=== PATIENT | male | born 1970 | race Hispanic/Latino ===

== ENCOUNTER 2023-03-12 18:27 | Inpatient (IN) | payer MEDICAID ==
[~2023-03-12] VITALS: Ht 165.1 cm; Wt 66.0 kg
[2023-03-12] MEDS ORDERED: LEVOFLOXACIN 750 MG/D5W 150 ML 150 ML IV ONE (21:00)
[2023-03-12] MEDS ORDERED: VANCOMYCIN 1G/250ML KIT 250 ML IV ONE (21:00)
[2023-03-12] MEDS ORDERED: TETANUS/DIPHTHERIA TOXOID [ADULT] 0.5 ML VIAL IM ONE (21:00)
[2023-03-12 21:09] LABS: BASOPHILS # (AUTO) 0.06 K/uL (0.00-0.20); BASOPHILS % (AUTO) 0.6 % (0.0-5.0); EOSINOPHILS # (AUTO) 0.01 K/uL (0.00-0.70); EOSINOPHILS % (AUTO) 0.1 % (0.0-8.0); HEMATOCRIT 36.4 % (42-54); IMMATURE GRANULOCYTE ABSOLUTE 0.34 K/uL (0-1); LYMPHOCYTES # (AUTO) 1.2 K/uL (1.0-4.8); LYMPHOCYTES % (AUTO) 12.5 % (21.0-51.0); MEAN CORPUSCULAR HGB CONC 32.4 g/dL (32.0-36.0); MEAN CORPUSCULAR VOLUME 92.6 fL (79-99); MONOCYTES # (AUTO) 0.7 K/uL (0.1-1.0); MONOCYTES % (AUTO) 7.1 % (3.0-13.0); NEUTROPHILS # (AUTO) 7.5 K/uL (1.8-7.7); NEUTROPHILS % (AUTO) 76.2 % (40.0-77.0); PLATELET COUNT (AUTO) 234 K/uL (130-400); RED BLOOD CELL COUNT(AUTO) 3.93 MIL/uL (4.50-6.20); RED CELL DISTRIBUTION WIDTH 13.2 % (11.0-15.5); WHITE BLOOD COUNT (AUTO) 9.9 K/uL (4.8-10.8)
[2023-03-12 21:23] LABS: CREATININE 0.9 mg/dL (0.5-1.5); POTASSIUM 3.8 mmol/L (3.5-5.1)
[2023-03-12 21:46] LABS: ALBUMIN 2.6 g/dL (3.5-5.0); BILIRUBIN,TOTAL 0.2 mg/dL (0.2-1.0); TOTAL PROTEIN, SERUM 7.5 g/dL (6.0-8.3)
[2023-03-12] MEDS ORDERED: ONDANSETRON 4MG INJ IV PRN (22:30)
[2023-03-12] MEDS ORDERED: POTASSIUM CHLORIDE 10% ELIXIR 20 MEQ/15 ML UDCUP PO PRN (22:30)
[2023-03-12] MEDS ORDERED: MORPHINE 2 MG SYG IV PRN (22:30)
[2023-03-12] MEDS ORDERED: VANCOMYCIN PROTOCOL PER PHARMACY IV PRN (22:30)
[2023-03-12] MEDS ORDERED: KCL 20 MEQ ERTAB PO PRN (22:30)
[2023-03-12] MEDS ORDERED: POTASSIUM CHLORIDE 20MEQ/100ML 100 ML IV PRN (22:30)
[2023-03-12] MEDS ORDERED: ACETAMINOPHEN 325 MG TAB PO PRN ×2 (22:30)
[2023-03-12] MEDS ORDERED: MAGNESIUM 2GM PREMIX 50ML 50 ML IV PRN (22:30)
[2023-03-12] MEDS: LACTATED RINGERS 1000ML 1,000 ML IV SCH (23:13)
[2023-03-13] VITALS (9 sets, daily range): BP systolic 102–143; BP diastolic 53–82; PULSE 70–98; RESP 17–22; O2SAT 92–100
[2023-03-13] MEDS ORDERED: VANCOMYCIN 750MG VIAL IVPB ONE (00:30)
[2023-03-13] MEDS ORDERED: CLON1TAB12 PO (01:22)
[2023-03-13] MEDS ORDERED: LEVO125 PO (01:22)
[2023-03-13] MEDS ORDERED: QUET100T34 PO (01:22)
[2023-03-13] MEDS ORDERED: AUGMENTIN PO (01:22)
[2023-03-13] MEDS ORDERED: LEVE750T10 PO (01:22)
[2023-03-13] MEDS ORDERED: DOCU60SY6 PO (01:22)
[2023-03-13] MEDS ORDERED: HYDROCORTISONE TAB PO (01:22)
[2023-03-13] MEDS ORDERED: ZONI100C87 PO (01:22)
[2023-03-13] MEDS ORDERED: VITAMIN D3 PO (01:22)
[2023-03-13] MEDS ORDERED: CALC-135 PO (01:22)
[2023-03-13] MEDS ORDERED: ASPI-1197 PO (01:22)
[2023-03-13] MEDS ORDERED: POLY119P3 PO (01:22)
[2023-03-13] MEDS ORDERED: CLON0.5T4 PO (01:22)
[2023-03-13] MEDS ORDERED: CYAN500T46 PO (01:22)
[2023-03-13] MEDS ORDERED: FOLI0.8T3 PO (01:22)
[2023-03-13] MEDS ORDERED: QUET200T30 PO (01:22)
[2023-03-13] MEDS ORDERED: MULT-1367 PO (01:22)
[2023-03-13] MEDS ORDERED: HALOPERIDOL INJ 5 MG/ML VIAL ONE ×2 (03:41→12:54)
[2023-03-13] MEDS: LACTATED RINGERS 1000ML 1,000 ML IV SCH ×2 (04:00→20:43)
[2023-03-13 04:59] LABS: BASOPHILS # (AUTO) 0.05 K/uL (0.00-0.20); BASOPHILS % (AUTO) 0.6 % (0.0-5.0); EOSINOPHILS # (AUTO) 0.01 K/uL (0.00-0.70); EOSINOPHILS % (AUTO) 0.1 % (0.0-8.0); HEMATOCRIT 35.5 % (42-54); IMMATURE GRANULOCYTE ABSOLUTE 0.35 K/uL (0-1); LYMPHOCYTES # (AUTO) 1.3 K/uL (1.0-4.8); LYMPHOCYTES % (AUTO) 15.1 % (21.0-51.0); MEAN CORPUSCULAR HEMOGLOBIN 29.9 pg (27.0-33.0); MEAN CORPUSCULAR HGB CONC 31.5 g/dL (32.0-36.0); MEAN CORPUSCULAR VOLUME 94.7 fL (79-99); MONOCYTES # (AUTO) 0.6 K/uL (0.1-1.0); NEUTROPHILS # (AUTO) 6.5 K/uL (1.8-7.7); NEUTROPHILS % (AUTO) 73.2 % (40.0-77.0); PLATELET COUNT (AUTO) 219 K/uL (130-400); RED BLOOD CELL COUNT(AUTO) 3.75 MIL/uL (4.50-6.20); RED CELL DISTRIBUTION WIDTH 13.2 % (11.0-15.5); WHITE BLOOD COUNT (AUTO) 8.9 K/uL (4.8-10.8)
[2023-03-13 05:35] LABS: CREATININE 0.8 mg/dL (0.5-1.5); MAGNESIUM 2.1 mg/dL (1.80-2.40); PHOSPHORUS 3.4 mg/dL (2.5-4.9); POTASSIUM 3.4 mmol/L (3.5-5.1); THYROID STIMULATING HORMONE 5.6 uIU/mL (0.36-3.74)
[2023-03-13] MEDS: FAMOTIDINE 20MG TAB PO SCH ×2 (10:23→20:43)
[2023-03-13] MEDS: ENOXAPARIN SODIUM 40 MG/0.4 ML SYRINGE SQ SCH (10:23)
[2023-03-13] MEDS: LEVOFLOXACIN 750 MG/D5W 150 ML 150 ML IV SCH (10:23)
[2023-03-13] MEDS: VANCOMYCIN 1G/250ML KIT 250 ML IV SCH ×2 (12:04→23:00)
[2023-03-13] MEDS ORDERED: HALOPERIDOL INJ 5 MG/ML VIAL IV SCH (13:00)
[2023-03-13] MEDS: HALOPERIDOL INJ 5 MG/ML VIAL IM SCH (13:00)
[2023-03-13] MEDS: MORPHINE 4 MG SYG IV PRN (17:16)
[2023-03-14] VITALS (7 sets, daily range): BP systolic 94–140; BP diastolic 42–86; PULSE 66–76; RESP 18–20; O2SAT 97
[2023-03-14] MEDS: HALOPERIDOL INJ 5 MG/ML VIAL IM PRN ×2 (04:58→20:00)
[2023-03-14 08:38] LABS: HEMATOCRIT 37.4 % (42-54); MEAN CORPUSCULAR HEMOGLOBIN 30.3 pg (27.0-33.0); MEAN CORPUSCULAR HGB CONC 32.6 g/dL (32.0-36.0); MEAN CORPUSCULAR VOLUME 92.8 fL (79-99); RED BLOOD CELL COUNT(AUTO) 4.03 MIL/uL (4.50-6.20); RED CELL DISTRIBUTION WIDTH 12.9 % (11.0-15.5)
[2023-03-14] MEDS: IODOSORB GEL 40GM TP SCH (09:00)
[2023-03-14 09:15] LABS: CREATININE 0.7 mg/dL (0.5-1.5); POTASSIUM 3.7 mmol/L (3.5-5.1)
[2023-03-14] MEDS: ENOXAPARIN SODIUM 40 MG/0.4 ML SYRINGE SQ SCH (10:01)
[2023-03-14] MEDS: FAMOTIDINE 20MG TAB PO SCH ×2 (10:01→21:00)
[2023-03-14] MEDS: LEVOFLOXACIN 750 MG/D5W 150 ML 150 ML IV SCH (10:03)
[2023-03-14] MEDS: MORPHINE 4 MG SYG IV PRN (12:14)
[2023-03-14] MEDS: HALOPERIDOL INJ 5 MG/ML VIAL IM SCH (13:00)
[2023-03-14] MEDS: VANCOMYCIN 1G/250ML KIT 250 ML IV SCH (13:10)
[2023-03-15 04:00] VITALS: BP 91/43; PULSE 72; RESP 18
[2023-03-15 04:45] LABS: MEAN CORPUSCULAR HGB CONC 32.4 g/dL (32.0-36.0); MEAN CORPUSCULAR VOLUME 92.5 fL (79-99); RED CELL DISTRIBUTION WIDTH 12.9 % (11.0-15.5); WHITE BLOOD COUNT (AUTO) 9.2 K/uL (4.8-10.8)
[2023-03-15 05:03] LABS: CREATININE 0.7 mg/dL (0.5-1.5); POTASSIUM 3.8 mmol/L (3.5-5.1)
[2023-03-15 08:00] VITALS: BP 133/73; PULSE 78; RESP 18
[2023-03-15] MEDS: IODOSORB GEL 40GM TP SCH ×2 (09:00→09:38)
[2023-03-15 09:36] VITALS: O2SAT 93
[2023-03-15] MEDS: FAMOTIDINE 20MG TAB PO SCH ×2 (09:36→21:42)
[2023-03-15] MEDS: LEVOFLOXACIN 750 MG/D5W 150 ML 150 ML IV SCH (09:36)
[2023-03-15] MEDS: ENOXAPARIN SODIUM 40 MG/0.4 ML SYRINGE SQ SCH (09:38)
[2023-03-15] MEDS ORDERED: LORAZEPAM 2 MG/ML 1 ML VIAL IVP PRN (11:00)
[2023-03-15] MEDS ORDERED: ZIPRASIDONE MESYLATE 20 MG/VIAL IM PRN (11:00)
[2023-03-15 12:00] VITALS: BP 113/63; PULSE 75; RESP 18
[2023-03-15] MEDS ORDERED: POLYETHYLENE GLYCOL 119 GM PO SCH (12:00)
[2023-03-15] MEDS: VANCOMYCIN 1G/250ML KIT 250 ML IV SCH ×2 (12:47)
[2023-03-15] MEDS: HALOPERIDOL INJ 5 MG/ML VIAL IM SCH (13:00)
[2023-03-15] MEDS ORDERED: DOCUSATE SODIUM 50 MG PO SCH (14:00)
[2023-03-15] MEDS: ZONISAMIDE 100 MG CAP PO SCH ×2 (14:12→21:43)
[2023-03-15 20:00] VITALS: PULSE 0; O2SAT 97
[2023-03-15] MEDS ORDERED: AUGMENTIN 875 MG PO SCH (21:00)
[2023-03-15] MEDS ORDERED: [UNRECOGNIZED DRUG - OTHER] PO SCH (21:00)
[2023-03-15] MEDS ORDERED: LEVETIRACETAM 1500 MG PO SCH (21:00)
[2023-03-15] MEDS ORDERED: VITAMIN D3 PO SCH (21:00)
[2023-03-15] MEDS ORDERED: QUETIAPINE FUMARATE PO SCH (21:00)
[2023-03-15] MEDS ORDERED: CALCIUM CITRATE PO SCH (21:00)
[2023-03-15] MEDS: LEVETIRACETAM 500 MG TABLET PO SCH (21:41)
[2023-03-15] MEDS: QUETIAPINE FUMARATE 25 MG TAB PO SCH (21:42)
[2023-03-15] MEDS: DOCUSATE SODIUM 100 MG CAP PO SCH (21:42)
[2023-03-15] MEDS: QUETIAPINE FUMARATE 100 MG TAB PO SCH (21:42)
[2023-03-15] MEDS: CLONAZEPAM 0.5 MG TABLET PO SCH (21:43)
[2023-03-16] MEDS: HALOPERIDOL INJ 5 MG/ML VIAL IM PRN (00:31)
[2023-03-16] MEDS: VANCOMYCIN 1G/250ML KIT 250 ML IV SCH ×2 (00:38→11:18)
[2023-03-16 04:00] VITALS: PULSE 70; RESP 16
[2023-03-16 04:57] LABS: BASOPHILS # (AUTO) 0.03 K/uL (0.00-0.20); BASOPHILS % (AUTO) 0.6 % (0.0-5.0); IMMATURE GRANULOCYTE ABSOLUTE 0.21 K/uL (0-1); LYMPHOCYTES # (AUTO) 1.3 K/uL (1.0-4.8); LYMPHOCYTES % (AUTO) 24.8 % (21.0-51.0); MEAN CORPUSCULAR HEMOGLOBIN 29.9 pg (27.0-33.0); MEAN CORPUSCULAR HGB CONC 32.5 g/dL (32.0-36.0); MEAN CORPUSCULAR VOLUME 92.1 fL (79-99); MONOCYTES # (AUTO) 0.4 K/uL (0.1-1.0); NEUTROPHILS # (AUTO) 3.4 K/uL (1.8-7.7); NEUTROPHILS % (AUTO) 63.7 % (40.0-77.0); PLATELET COUNT (AUTO) 345 K/uL (130-400); RED BLOOD CELL COUNT(AUTO) 3.91 MIL/uL (4.50-6.20); RED CELL DISTRIBUTION WIDTH 12.8 % (11.0-15.5); WHITE BLOOD COUNT (AUTO) 5.4 K/uL (4.8-10.8)
[2023-03-16 05:17] LABS: ALBUMIN 2.2 g/dL (3.5-5.0); BILIRUBIN,TOTAL 0.3 mg/dL (0.2-1.0); CREATININE 0.8 mg/dL (0.5-1.5); POTASSIUM 3.8 mmol/L (3.5-5.1); TOTAL PROTEIN, SERUM 6.8 g/dL (6.0-8.3)
[2023-03-16] MEDS: LEVOTHYROXINE 150 MCG TABLET PO SCH (06:30)
[2023-03-16 07:51] VITALS: BP 103/63; PULSE 75; RESP 19
[2023-03-16 08:00] VITALS: O2SAT 92
[2023-03-16] MEDS: QUETIAPINE FUMARATE 100 MG TAB PO SCH ×3 (09:00→21:42)
[2023-03-16] MEDS ORDERED: HYDROCORTISONE 15 MG PO SCH (09:00)
[2023-03-16] MEDS ORDERED: CYANOCOBALAMIN 500 MCG PO SCH (09:00)
[2023-03-16] MEDS ORDERED: NON-FORMULARY MEDICATION 1 EACH (Folic Acid 1 MG) PO SCH (09:00)
[2023-03-16] MEDS: IODOSORB GEL 40GM TP SCH (09:00)
[2023-03-16] MEDS ORDERED: NON-FORMULARY MEDICATION 1 EACH (Multivitamin 1 EACH) PO SCH (09:00)
[2023-03-16] MEDS: ENOXAPARIN SODIUM 40 MG/0.4 ML SYRINGE SQ SCH (11:13)
[2023-03-16] MEDS: ASPIRIN 81MG CHEW TAB PO SCH (11:14)
[2023-03-16] MEDS: FAMOTIDINE 20MG TAB PO SCH ×2 (11:14→21:42)
[2023-03-16] MEDS: LEVETIRACETAM 500 MG TABLET PO SCH ×2 (11:14→21:42)
[2023-03-16] MEDS: LEVOFLOXACIN 750 MG/D5W 150 ML 150 ML IV SCH (11:14)
[2023-03-16] MEDS: MULTIVITAMIN TABLET PO SCH (11:14)
[2023-03-16] MEDS: ZONISAMIDE 100 MG CAP PO SCH ×3 (11:14→21:42)
[2023-03-16] MEDS: FOLIC ACID 1 MG TABLET PO SCH (11:15)
[2023-03-16] MEDS: CLONAZEPAM 1MG TAB PO SCH (11:15)
[2023-03-16] MEDS: DOCUSATE SODIUM 100 MG CAP PO SCH ×2 (11:15→21:42)
[2023-03-16] MEDS: HYDROCORTISONE 20 MG TABLET PO SCH (11:19)
[2023-03-16] MEDS: HALOPERIDOL INJ 5 MG/ML VIAL IM SCH (11:42)
[2023-03-16 19:00] VITALS: BP 133/49
[2023-03-16 19:23] VITALS: O2SAT 98
[2023-03-16] MEDS: QUETIAPINE FUMARATE 25 MG TAB PO SCH (21:42)
[2023-03-16] MEDS: CLONAZEPAM 0.5 MG TABLET PO SCH (21:42)
[2023-03-16 23:00] VITALS: BP 163/63
[2023-03-17] MEDS: VANCOMYCIN 1G/250ML KIT 250 ML IV SCH ×2 (02:13→12:48)
[2023-03-17 04:00] VITALS: BP 121/55; PULSE 70; RESP 19
[2023-03-17] MEDS: LEVOTHYROXINE 150 MCG TABLET PO SCH (06:21)
[2023-03-17 08:00] VITALS: BP 118/66; PULSE 72; RESP 16; O2SAT 95
[2023-03-17] MEDS: QUETIAPINE FUMARATE 100 MG TAB PO SCH ×2 (09:00→10:18)
[2023-03-17] MEDS: LEVOFLOXACIN 750 MG/D5W 150 ML 150 ML IV SCH (10:16)
[2023-03-17] MEDS: FOLIC ACID 1 MG TABLET PO SCH (10:17)
[2023-03-17] MEDS: CLONAZEPAM 1MG TAB PO SCH (10:17)
[2023-03-17] MEDS: DOCUSATE SODIUM 100 MG CAP PO SCH (10:17)
[2023-03-17] MEDS: ENOXAPARIN SODIUM 40 MG/0.4 ML SYRINGE SQ SCH (10:17)
[2023-03-17] MEDS: ZONISAMIDE 100 MG CAP PO SCH (10:17)
[2023-03-17] MEDS: LEVETIRACETAM 500 MG TABLET PO SCH (10:17)
[2023-03-17] MEDS: ASPIRIN 81MG CHEW TAB PO SCH (10:18)
[2023-03-17] MEDS: FAMOTIDINE 20MG TAB PO SCH (10:18)
[2023-03-17] MEDS: HYDROCORTISONE 20 MG TABLET PO SCH (10:18)
[2023-03-17] MEDS: MULTIVITAMIN TABLET PO SCH (10:18)
[2023-03-17] MEDS: IODOSORB GEL 40GM TP SCH (10:19)
[2023-03-17 11:22] LABS: CREATININE 0.7 mg/dL (0.5-1.5); POTASSIUM 3.8 mmol/L (3.5-5.1)
[2023-03-17 11:29] LABS: VANCOMYCIN TROUGH 12.5 UG/ML (10.0-20.0)
[2023-03-17] MEDS: HALOPERIDOL INJ 5 MG/ML VIAL IM SCH (12:48)
== END 2023-03-17 17:15 | disposition home or self-care (01) | DRG 351 ==
LOC: EDH 18:27 → EDHIP 18:28 → 4AH 03-13 00:33
PROVIDERS: ADMIT Internal Medicine; ATTEND Internal Medicine
DX: M62.82 Rhabdomyolysis (principal); F72 Severe intellectual disabilities; E44.1 Mild protein-calorie malnutrition; L03.115 Cellulitis of right lower limb; E03.9 Hypothyroidism, unspecified; F31.9 Bipolar disorder, unspecified; E87.6 Hypokalemia; F20.9 Schizophrenia, unspecified; I10 Essential (primary) hypertension; I45.10 Unspecified right bundle-branch block; L03.116 Cellulitis of left lower limb; L97.919 Non-pressure chronic ulcer of unspecified part of right lower leg with unspecified severity; G40.109 Localization-related (focal) (partial) symptomatic epilepsy and epileptic syndromes with simple partial seizures, not intractable, without status epilepticus; R62.59 Other lack of expected normal physiological development in childhood; Z88.0 Allergy status to penicillin; Z95.0 Presence of cardiac pacemaker; Z99.3 Dependence on wheelchair; Z88.8 Allergy status to other drugs, medicaments and biological substances; Z79.899 Other long term (current) drug therapy; Z68.24 Body mass index [BMI] 24.0-24.9, adult
CPT/HCPCS: 36415; 71045; 73630; 80048; 80053; 80202; 82550; 83605; 83735; 84100; 84145; 84443; 84484; 85025; 85027; 87040; 87070; 87076; 90471; 90714; 92610; 93925; 93971; 96374; G0378; J1630; J1650; J1956; J2270; J3370; J3480; J7120